=== PATIENT | female | born 1960 | race Caucasian/White ===

== ENCOUNTER 2021-06-28 17:10 | Emergency (ER) | payer MEDICARE ==
[~2021-06-28] VITALS: Ht 157.5 cm; Wt 75.0 kg
[2021-06-28 17:14] VITALS: BP 149/89
== END 2021-06-28 21:25 | disposition left against medical advice (07) ==
LOC: ER 17:10
DX: M25.562 Pain in left knee (principal); M79.89 Other specified soft tissue disorders; I10 Essential (primary) hypertension
CPT/HCPCS: 99281

== ENCOUNTER 2021-11-17 17:08 | Emergency (ER) | payer MEDICARE ==
[~2021-11-17] VITALS: Ht 157.5 cm; Wt 61.0 kg
[2021-11-17 17:28] VITALS: BP 172/101
[2021-11-17] MEDS ORDERED: HYDR28OI2 TP (18:54)
[2021-11-17] MEDS ORDERED: PREDNISONE 20MG TABLET PO ONE (19:00)
== END 2021-11-17 19:31 | disposition home or self-care (01) ==
LOC: ER 17:08
DX: T78.40XA Allergy, unspecified, initial encounter (principal); J45.909 Unspecified asthma, uncomplicated; I10 Essential (primary) hypertension; X58.XXXA Exposure to other specified factors, initial encounter
CPT/HCPCS: 99282; J7512

== ENCOUNTER 2023-03-24 00:21 | Emergency (ER) | payer MEDICARE, MEDICAID ==
[~2023-03-24] VITALS: Ht 154.9 cm; Wt 77.0 kg
[~2023-03-24 00:21] MED LIST: HYDR28OI2 TP
[2023-03-24 01:01] VITALS: BP 170/104; O2SAT 96
[2023-03-24] MEDS ORDERED: METHYLPREDNISOLONE SOD SUCC 125MG/2ML (ACT-O-VIAL) IM STA (02:07)
[2023-03-24] MEDS ORDERED: IPRATROPIUM BROMIDE (0.02%) 0.5MG/2.5ML NEB HHN STA (02:07)
[2023-03-24] MEDS ORDERED: ALBUTEROL (0.083%) 2.5MG/3ML NEB HHN STA (02:07)
[2023-03-24 02:20] VITALS: TEMP 98.2
[2023-03-24] MEDS ORDERED: ACETAMINOPHEN 325MG TABLET PO STA (02:20)
[2023-03-24 02:25] VITALS: PULSE 94; RESP 18
[2023-03-24] MEDS ORDERED: ALBU18HF2 IH (03:39)
[2023-03-24] MEDS ORDERED: PERM60CR4 TP (03:39)
[2023-03-24] MEDS ORDERED: HYDR453.3 TP (03:39)
[2023-03-24] MEDS ORDERED: P50 PO (03:39)
[2023-03-24] MEDS ORDERED: DIPH25CA83 PO (03:39)
[2023-03-25] MEDS ORDERED: ALBU6.7H15 INH (22:23)
== END 2023-03-24 04:00 | disposition home or self-care (01) ==
LOC: ER 00:34
DX: B86 Scabies (principal); L25.9 Unspecified contact dermatitis, unspecified cause; J44.9 Chronic obstructive pulmonary disease, unspecified; I10 Essential (primary) hypertension; Z90.89 Acquired absence of other organs
CPT/HCPCS: 94640; 99283; 71045; 96372; J2930

== ENCOUNTER 2023-03-25 17:42 | Emergency (ER) | payer MEDICARE, MEDICAID ==
[~2023-03-25] VITALS: Ht 157.5 cm; Wt 68.0 kg
[~2023-03-25 17:42] MED LIST changes: +ALBU18HF2 IH; +DIPH25CA83 PO; +HYDR453.3 TP; +P50 PO; +PERM60CR4 TP
[2023-03-25 17:50] VITALS: PULSE 96; RESP 17
[2023-03-25 17:57] VITALS: BP 177/108; TEMP 98.5; O2SAT 99
[2023-03-25 18:50] LABS: BASOPHILS % 0.6 % (0.0-2.0); EOSINOPHILS % 1.6 % (0.0-5.0); HEMATOCRIT. 40.3 % (36.0-48.0); LYMPHOCYTES % 31.5 % (20.0-50.0); MEAN CORPUSCULAR HEMOGLOBIN 29.5 pg (28.0-32.0); MEAN CORPUSCULAR HGB CONC 32.3 g/dL (31.0-37.0); MEAN CORPUSCULAR VOLUME 91.5 fL (81.0-99.0); NEUTROPHILS % 60.3 % (40.0-76.0); PLATELET 343 x1000/uL (130-400); RED BLOOD CELL COUNT 4.41 mill/uL (4.2-5.4); RED CELL DISTRIBUTION WIDTH 15.2 % (11.6-14.6); WHITE BLOOD COUNT 9.5 x1000/uL (4.5-11.0)
[2023-03-25 18:59] LABS: INR 0.9; PROTHROMBIN TIME 10.1 sec (9.6-11.0)
[2023-03-25 19:04] LABS: ALANINE AMINOTRANSFERASE 88 IU/L (10-49); ALBUMIN 4.6 g/dL (3.2-4.8); ASPARTATE AMINOTRANSFERASE 101 IU/L (<34); BILIRUBIN TOTAL 0.3 mg/dL (0.1-1.0); CALCIUM 10.5 mg/dL (8.7-10.4); CARBON DIOXIDE 34 mEq/L (21-32); CHLORIDE 103 mEq/L (98-107); CREATININE 0.8 mg/dL (0.6-1.0); GLUCOSE 118 mg/dL (70-105); POTASSIUM 3.4 mEq/L (3.5-5.1); PROTEIN TOTAL 7.5 g/dL (6.0-8.3); SODIUM 143 mEq/L (136-145); TROPONIN I HIGH SENSITIVITY 17 ng/L (3.0-34); UREA NITROGEN BLOOD 21 mg/dL (9-23)
[2023-03-25] MEDS ORDERED: ALBU6.7H15 INH (22:23)
== END 2023-03-25 23:01 | disposition home or self-care (01) ==
LOC: ER 17:42
DX: J45.901 Unspecified asthma with (acute) exacerbation (principal); F15.90 Other stimulant use, unspecified, uncomplicated; I10 Essential (primary) hypertension; Z90.89 Acquired absence of other organs
CPT/HCPCS: 36415; 71045; 80053; 83880; 84484; 85025; 93005; 99285